=== PATIENT | male | born 1995 | race Caucasian/White ===

== ENCOUNTER 2016-11-13 21:08 | Emergency (ER) | payer BC, OTHER ==
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
--- NOTE | 2016-11-13 22:34 | ED ORDER SUMMARY ---
..... Patient: DANIEL SOLER OrderSheet [facility] VisitID: [id number] [place] [address] 21y, M Registration Date/Time: 11/13/2016 ORDER SHEET Weight: 113.3 kg (stated) Allergies: No Known Drug Allergy GENERAL ORDERS: CT Sinus/Facial Bones wo Cont Urgent (21:56 11/13/2016 HBivens A.R.N.P.) (Ack 22:03 Bashir ER Composing Machine Operator/Tender) (22:51 JQuivey R.N.) Wound Irrigation (21:56 11/13/2016 HBivens A.R.N.P.) (Ack 22:20 JQuivey R.N.) (22:51 JQuivey R.N.) MEDICATION ORDERS: Tdap IM 0.5 mL (NOW, per protocol) (21:56 11/13/2016 HBivens A.R.N.P.) (Ack 22:06 JQuivey R.N.) (22:19 JQuivey R.N.) IV FLUIDS: ORDER SHEET NOTES: [Electronically signed by Valdo Ballesteros R.N. (22:54 11/13/2016)] [Electronically signed by Tammi VerasRFranciscaN.P. (22:54 11/13/2016)] [Electronically locked/signed by Valdo Ballesteros R.N. (22:54 11/13/2016)]
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
--- NOTE | 2016-11-13 22:34 | ED ORDER SUMMARY ---
..... Patient: DANIEL SOLER OrderSheet [facility] VisitID: [id number] [place] [address] 21y, M Registration Date/Time: 11/13/2016 ORDER SHEET Weight: 113.3 kg (stated) Allergies: No Known Drug Allergy GENERAL ORDERS: CT Sinus/Facial Bones wo Cont Urgent (21:56 11/13/2016 HBivens A.R.N.P.) (Ack 22:03 Bashir ER Land Survey Technician) (22:51 JQuivey R.N.) Wound Irrigation (21:56 11/13/2016 HBivens A.R.N.P.) (Ack 22:20 JQuivey R.N.) (22:51 JQuivey R.N.) MEDICATION ORDERS: Tdap IM 0.5 mL (NOW, per protocol) (21:56 11/13/2016 HBivens A.R.N.P.) (Ack 22:06 JQuivey R.N.) (22:19 JQuivey R.N.) IV FLUIDS: ORDER SHEET NOTES: [Electronically signed by Valdo Ballesteros R.N. (22:54 11/13/2016)] [Electronically signed by Tammi VerasRFranciscaN.P. (22:54 11/13/2016)] [Electronically locked/signed by Valdo Ballesteros R.N. (22:54 11/13/2016)]
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
--- NOTE | 2016-11-13 22:55 | ED MED RECONCILIATION SUMMARY ---
Patient: DANIEL SOLER Medication Reconciliation Report [facility] VisitID: [id number] [place] [address] 21y, M Registration Date/Time: 11/13/2016 Weight: 113.3 kg Height/Length: 75 in. BMI: 31.2 ALLERGIES: No Known Drug Allergy The patient's Home Medications are listed below: NONE. The source(s) of the original Home Medication information: Not obtained. The following Medications were given to the patient in the Emergency Department: TDAP [IM] IM 0.5 mL, administered: 11/13/2016 10:17:00 PM The following Medications were prescribed to the patient: Flexeril 10 mg: Take 1 orally every 8 hours as needed for muscle spasm. Dispense twenty (20). No refills. Substitution is permissible. -- Tammi Veras, A.R.N.P. Ultram 50 mg tablets: take 1-2 orally every 6 hours as needed for pain. Dispense twenty (20). No refills. Substitution is permissible. -- Tammi Veras, A.R.N.P.
--- NOTE | 2016-11-13 22:55 | ED MAR SUMMARY ---
..... Medication Administration Record [facility] [address] [place] [address] Patient: DANIEL SOLER Visit ID: [id number] 21y, M Weight: 113.3 kg Height/Length: 75 in BMI: 31.2 ALLERGIES: No Known Drug Allergy Given 22:17 11/13/2016 Valdo Ballesteros RFranciscaNFrancisca Medication Administered: TDAP [IM], Dose: 0.5 mL IM. Medication Ordered: Tdap IM 0.5 mL (NOW, per protocol).
--- NOTE | 2016-11-13 22:55 | ED MAR SUMMARY ---
..... Medication Administration Record [facility] [address] [place] [address] Patient: DANIEL SOLER Visit ID: [id number] 21y, M Weight: 113.3 kg Height/Length: 75 in BMI: 31.2 ALLERGIES: No Known Drug Allergy Given 22:17 11/13/2016 Valdo Ballesteros RFranciscaNFrancisca Medication Administered: TDAP [IM], Dose: 0.5 mL IM. Medication Ordered: Tdap IM 0.5 mL (NOW, per protocol).
--- NOTE | 2016-11-13 22:55 | ED MED RECONCILIATION SUMMARY ---
Patient: DANIEL SOLER Medication Reconciliation Report [facility] VisitID: [id number] [place] [address] 21y, M Registration Date/Time: 11/13/2016 Weight: 113.3 kg Height/Length: 75 in. BMI: 31.2 ALLERGIES: No Known Drug Allergy The patient's Home Medications are listed below: NONE. The source(s) of the original Home Medication information: Not obtained. The following Medications were given to the patient in the Emergency Department: TDAP [IM] IM 0.5 mL, administered: 11/13/2016 10:17:00 PM The following Medications were prescribed to the patient: Flexeril 10 mg: Take 1 orally every 8 hours as needed for muscle spasm. Dispense twenty (20). No refills. Substitution is permissible. -- Tammi Veras, A.R.N.P. Ultram 50 mg tablets: take 1-2 orally every 6 hours as needed for pain. Dispense twenty (20). No refills. Substitution is permissible. -- Tammi Veras, A.R.N.P.
== END 2016-11-13 22:48 | disposition home or self-care (01) ==
LOC: ED SRH 21:08
DX: S00.81XA Abrasion of other part of head, initial encounter (principal); S00.211A Abrasion of right eyelid and periocular area, initial encounter; S00.11XA Contusion of right eyelid and periocular area, initial encounter; V43.52XA Car driver injured in collision with other type car in traffic accident, initial encounter; Y93.89 Activity, other specified; Y99.9 Unspecified external cause status; Y92.410 Unspecified street and highway as the place of occurrence of the external cause